=== PATIENT | male | born 2000 | race Caucasian/White ===

== ENCOUNTER 2019-04-16 09:43 | Emergency (ER) | payer OTHER ==
--- OUTSIDE RECORDS SUMMARY | 2019-04-16 09:50 | XMS REPORT | Continuity of Care Document ---
:2000 External Reference #:[id number] Author Name Jerald Jessica M.D. Address [address] [place] [address] Care Team Providers Name Role Jerald Beebe M.D. Primary Care Physician Unavailable Payers Date Identification Numbers Payment Provider Subscriber Policy Number: [id number] Braeden Ko PayID: [id number] [address] [place] [address] Problems Active Problems Provider Date Obesity Jerald Jessica M.D. Onset: 07/26/2015 Gilbert's syndrome Jerald Jessica M.D. Onset: 03/31/2019 Thrombocytopenic disorder Jerald Jessica M.D. Onset: 03/31/2019 Essential hypertension Jerald Jessica M.D. Onset: 12/16/2018 Family History Date Family Member(s) Observation Comments Father Seasonal Allergies Father Asthma Mother Seasonal Allergies Mother Asthma Onset: (age 35 Years) Maternal Grandfather Hypertension Social History Type Date Description Comments Sex Unknown Smoke-Free Home is smoke-free ETOH Use Occasionally consumes once a month or alcohol less, 4-5 drinks per event Tobacco Use Start: Unknown Patient has never smoked Recreational Drug Use Denies Drug Use Tobacco Use Start: Unknown No Exposure To Secondhand Smoke Smoking Status Reviewed: 03/31/19 No Exposure To Secondhand Smoke Currently Active Patient is currently sexually active Condom Use Always Age 1st [place] 17 Years Old # Partners in a Lifetime 3 Additional Info Sexual preference is men and women Allergies, Adverse Reactions, Alerts Description No Known Drug Allergies Medications Active Medications SIG Qnty Indications Ordering Provider Date Lisinopril 1 by mouth 30tabs I10 Jerald Jessica, 03/31/2019 10mg Tablets every day M.DNaeem History Medications No Active Medications Unknown 12/16/2018 - 03/31/2019 No Active Medications Unknown 11/22/2016 - 02/01/2018 Azithromycin 2 tablets by mouth 6tabs R05 Jerald 11/17/2016 - 250mg on the first day Pamela Jessica 11/22/2016 Tablets followed by one daily for the next 4 days No Active Medications Jerald 07/14/2014 - Pamela Jessica 11/17/2016 Ibuprofen last taken on 02/01 Unknown - 200mg Capsules @ 0900, vomited 12/15/2018 after. Medications Administered in Office Medication SIG Qnty Indications Ordering Provider Date Immunization Administration TASHA Fuentes 10/14/2017 Single Or Combination Injection Immunization Administration Nursing 09/07/2016 Single Or Combination Injection Immunization Administration Jerald Jessica M.D. 08/07/2016 Single Or Combination Injection Immunization Adminstration 2+ Nursing 06/21/2016 Single Or Combination Injection Immunization Administration Nursing 06/21/2016 Single Or Combination Injection Immunization Administration Jerald Jessica M.D. 07/26/2015 Single Or Combination Injection Immunization Administration Jerald Jessica M.D. 07/14/2014 Single Or Combination Injection Immunizations CPT Code Status Date Vaccine Lot # [id number] Given 10/14/2017 Flu Quadrivalent [id number] 39419 Given 09/07/2016 Meningococcal B Vaccine [id number] 24528 Given 08/07/2016 Meningococcal B Vaccine [id number] 63416 Given 06/21/2016 Menactra [id number] 47709 Given 06/21/2016 Flu Quadrivalent [id number] 76693 Given 07/26/2015 Flu Quadrivalent [id number] 40163 Given 07/14/2014 Flumist [id number] 48580 Given 07/08/2013 Gardasil 09523 Given 07/21/2012 Gardasil 33567 Given 05/20/2012 Gardasil 93877 Given 05/10/2010 Tdap 31913 Given 05/06/2009 Varicella (Chicken Pox) Vaccine 65612 Given 05/06/2009 Hepatitis A Pediatric 00226 Given 04/28/2008 Menactra 26569 Given 04/28/2008 Hepatitis A Pediatric 61757 Given 04/17/2004 MMR Vaccine, Live, For Subcutaneous Use 62735 Given 04/17/2004 DTaP Vaccine Younger Than 7 75464 Given 12/29/2003 Polio Injectable 72353 Given 11/20/2000 Prevnar 13 45764 Given 11/20/2000 DTaP Vaccine Younger Than 7 56782 Given 08/21/2000 Hepatitis B Vaccine Pediatric/Adolescent 41126 Given 08/21/2000 Varicella (Chicken Pox) Vaccine 77700 Given 08/21/2000 Hib Vaccine 96442 Given 05/01/2000 Polio Injectable 70503 Given 05/01/2000 MMR Vaccine, Live, For Subcutaneous Use 64380 Given 05/01/2000 Prevnar 13 22685 Given 01/31/2000 Hepatitis B Vaccine Pediatric/Adolescent 42910 Given 01/31/2000 Prevnar 13 37978 Given 1999 Hib Vaccine 54296 Given 1999 DTaP Vaccine Younger Than 7 20429 Given 1999 Hepatitis B Vaccine Pediatric/Adolescent 54231 Given 1999 Polio Injectable 49034 Given 1999 DTaP Vaccine Younger Than 7 16770 Given 1999 Hib Vaccine 55467 Given 1999 Polio Injectable 84745 Given 1999 DTaP Vaccine Younger Than 7 27898 Given 1999 Hib Vaccine Vital Signs Date Vital Result Comment 03/31/2019 4:40pm Body Temperature 98.7 F Heart Rate 92 /min Respiratory Rate 18 /min BP Systolic 142 mmHg BP Diastolic 97 mmHg Weight 275.38 lb Weight 124.910 kg Weight Percentile >97th 01/16/2019 4:11pm Body Temperature 97.9 F Heart Rate 104 /min Respiratory Rate 16 /min BP Systolic 150 mmHg auto large cuff BP Diastolic 95 mmHg auto large cuff BP Systolic Recheck 142 mmHg manual large cuff BP Diastolic Recheck 84 mmHg manual large cuff Weight 280.12 lb Weight 127.065 kg Weight Percentile >97th 12/16/2018 11:31am Body Temperature 97.7 F Heart Rate 92 /min Respiratory Rate 16 /min BP Systolic 140 mmHg BP Diastolic 94 mmHg BP Systolic Recheck 140 mmHg BP Diastolic Recheck 91 mmHg Weight 279.69 lb Weight 126.866 kg Height 72.75 inches 6'0.75" BMI (Body Mass Index) 37.2 kg/m2 Body Mass Index Percentile 99 % Height Percentile 87 % Weight Percentile >97th 02/01/2018 10:38am Body Temperature 98.2 F Heart Rate 84 /min Respiratory Rate 16 /min BP Systolic 138 mmHg BP Diastolic 80 mmHg Blood Pressure Percentile 89 % Weight 297.50 lb Weight 134.946 kg Height 72.75 inches 6'0.75" BMI (Body Mass Index) 39.5 kg/m2 Body Mass Index Percentile 99 % Height Percentile 88 % Weight Percentile >97th 10/14/2017 3:35pm Body Temperature 98.4 F Heart Rate 80 /min Respiratory Rate 16 /min BP Systolic 134 mmHg BP Diastolic 87 mmHg Blood Pressure Percentile 81 % Weight 299.56 lb Weight 135.882 kg Height 72.75 inches 6'0.75" BMI (Body Mass Index) 39.8 kg/m2 Body Mass Index Percentile 99 % Height Percentile 88 % Weight Percentile >97th 11/17/2016 12:03pm Body Temperature 98.8 F Heart Rate 84 /min Respiratory Rate 16 /min BP Systolic 120 mmHg BP Diastolic 72 mmHg Blood Pressure Percentile 0 % Weight 279.50 lb Weight 126.781 kg O2 % BldC Oximetry 98 % Weight Percentile >97th 08/07/2016 2:47pm Body Temperature 98.4 F Heart Rate 75 /min Respiratory Rate 12 /min BP Systolic 120 mmHg BP Diastolic 78 mmHg Blood Pressure Percentile 41 % Weight 275.00 lb Weight 124.740 kg Height 72.5 inches 6'0.50" BMI (Body Mass Index) 36.8 kg/m2 Body Mass Index Percentile 99 % Height Percentile 89 % Weight Percentile >97th 07/26/2015 2:32pm Body Temperature 98.5 F Heart Rate 92 /min Respiratory Rate 16 /min BP Systolic 132 mmHg BP Diastolic 84 mmHg Blood Pressure Percentile 87 % Weight 248.06 lb Weight 112.521 kg Height 71.75 inches 5'11.75" BMI (Body Mass Index) 33.9 kg/m2 Body Mass Index Percentile 99 % Height Percentile 87 % Weight Percentile >97th 07/14/2014 3:12pm Body Temperature 97.1 F Heart Rate 87 /min Respiratory Rate 14 /min BP Systolic 130 mmHg BP Diastolic 84 mmHg Blood Pressure Percentile 87 % Weight 236.00 lb Weight 107.050 kg Height 71.25 inches 5'11.25" BMI (Body Mass Index) 32.7 kg/m2 Body Mass Index Percentile 99 % Height Percentile 91 % Weight Percentile >97th 07/08/2013 12:00pm Heart Rate 98 /min Respiratory Rate 16 /min BP Systolic 137 mmHg BP Diastolic 81 mmHg Weight 200.81 lb Height 69.25 inches 05/20/2012 12:00pm Heart Rate 91 /min Respiratory Rate 16 /min BP Systolic 123 mmHg BP Diastolic 74 mmHg Weight 163.62 lb Height 65.75 inches 02/28/2012 12:00pm Heart Rate 76 /min Respiratory Rate 18 /min BP Systolic 131 mmHg BP Diastolic 72 mmHg Weight 157.38 lb 02/26/2012 12:00pm Heart Rate 92 /min Respiratory Rate 20 /min BP Systolic 126 mmHg BP Diastolic 68 mmHg Weight 157.50 lb 05/11/2011 12:00pm Heart Rate 101 /min Respiratory Rate 16 /min BP Systolic 123 mmHg BP Diastolic 80 mmHg Weight 140.62 lb Height 62.25 inches 07/19/2010 12:00pm Heart Rate 88 /min Respiratory Rate 16 /min BP Systolic 110 mmHg BP Diastolic 74 mmHg Weight 122.25 lb 05/10/2010 12:00pm Heart Rate 86 /min Respiratory Rate 12 /min BP Systolic 120 mmHg BP Diastolic 82 mmHg Weight 115.50 lb Height 59.25 inches 05/06/2009 12:00pm Heart Rate 84 /min Respiratory Rate 18 /min BP Systolic 90 mmHg BP Diastolic 66 mmHg Weight 102.00 lb Height 56.5 inches 04/28/2008 12:00pm Heart Rate 112 /min Respiratory Rate 24 /min BP Systolic 98 mmHg BP Diastolic 76 mmHg Weight 81.50 lb Height 54 inches 04/23/2007 12:00pm Heart Rate 80 /min Respiratory Rate 16 /min BP Systolic 88 mmHg BP Diastolic 68 mmHg Weight 64.00 lb Height 51.75 inches 04/19/2006 12:00pm Heart Rate 96 /min Respiratory Rate 20 /min BP Systolic 84 mmHg BP Diastolic 60 mmHg Weight 57.00 lb Height 48.5 inches Results Test Date Facility Test Result H/L Range Note Laboratory test 03/20/2019 [facility] Free T4 0.87 ng/dL N 0.61-1.[address] ([place] [address] Thyroxine) TSH (Thyroid Stim Horm) 3.30 mcIU/mL N 0.34-5.60 Comp Metabolic Panel 03/20/2019 [facility] Sodium 138 mmol/L N 135-[address] [place] [address] Potassium 4.2 mmol/L N 3.5-5.0 Chloride 106 mmol/L N 101-111 Co2 Carbon Dioxide 22 mmol/L N 22-32 Anion Gap 10 mmol/L N 2-11 Glucose 95 mg/dL N 70-100 Blood Urea Nitrogen 17 mg/dL N 6-24 Creatinine 0.82 mg/dL N 0.67-1.17 BUN/Creatinine Ratio 20.7 High 8-20 Calcium 9.7 mg/dL N 8.6-10.3 Total Protein 7.0 g/dL N 6.4-8.9 Albumin 4.7 g/dL N 3.2-5.2 Globulin 2.3 g/dL N 2-4 Albumin/Globulin Ratio 2.0 N 1-3 Total Bilirubin 1.70 mg/dL High 0.2-1.0 Alkaline Phosphatase 56 U/L N 34-104 Alt 41 U/L N 7-52 Ast 27 U/L N 13-39 Egfr Non- 121.0 >60 Egfr 146.5 >60 1 Laboratory test 03/20/2019 [facility] Renin 5.6 ng/mL/h [address] [place] [address] CBC Auto Diff 03/20/2019 [facility] White Blood 9.2 10^3/uL N 3.5-10.[address] [place] [address] Red Blood Count 5.89 10^6/uL High 4.18-5.48 Hemoglobin 16.3 g/dL N 14.0-18.0 Hematocrit 46 % N 42-52 Mean Corpuscular Volume 78 fL Low 80-94 Mean Corpuscular Hemoglobin 28 pg N 27-31 Mean Corpuscular HGB Conc 35 g/dL N 31-36 Red Cell Distribution Width 15 % N 10-15 Platelet Count 104 10^3/uL Low 150-450 Mean Platelet Volume 7.4 fL N 7.4-10.4 Abs Neutrophils 6.0 10^3/uL N 1.5-7.7 Abs Lymphocytes 2.3 10^3/uL N 1.0-4.8 Abs Monocytes 0.7 10^3/uL N 0-0.8 Abs Eosinophils 0.1 10^3/uL N 0-0.6 Abs Basophils 0.0 10^3/uL N 0-0.2 Abs Nucleated RBC 0.0 10^3/uL Granulocyte % 65.6 % Lymphocyte % 25.1 % Monocyte % 7.3 % Eosinophil % 1.5 % Basophil % 0.5 % Nucleated Red Blood Cells % 0.2 .CBC W/Auto 12/16/2018 [facility] White Blood 6.8 Differential [address] [place] [place] [address] CNT [phone] Absolute Lymphocytes 1.7 Absolute Monocytes 0.6 Absolute Neutrophils Auto CNT 4.5 Lymph% 25.2 [place]% Auto Count BLD 9.0 Neutrophil % 65.8 RBC Red Blood Count 5.77 Hemoglobin Blood 15.5 Hematocrit 47.2 MCV (Corpuscular Volume) 81.8 MCH (Corpuscular Hemoglobin) 26.9 MCHC (Corpuscular Hemog Conc) 32.8 RDW 14.1 Platelet Count Blood Auto CNT 108 MPV 8.0 .Cholesterol 12/16/2018 [facility] Cholesterol Total 137 Screening [address] Mass/[place] [address] [phone] HDL Cholesterol Mass/Vol 28 Triglycerides Ser/Plas Mass/VL 309 LDL Cholesterol Mass/Vol 47 Non-HDL Cholesterol QN Ser/PLS 109 LDL/HDL Ratio 1.7 Bordetella PCR 11/17/2016 [facility] Bordetella Source Nasopharyngeal s <SEE N [address] NOTE> [place] [address] Bordetella pertussis PCR Negative N 4 Bordetella parapertussis PCR Negative N 5 Order 11/17/2016 [facility] Oximetry - Pulse or 98% Ear .CBC W/Auto 07/14/2014 [facility] White Blood Count 8.0 Differential [address] Ser Auto CNT [place], [place] [id number] [phone] Absolute Lymphocytes 2.8 Absolute Monocytes 0.8 Absolute Neutrophils Auto CNT 4.4 Lymph% 34.6 [place]% Auto Count BLD 10.0 Neutrophil % 55.4 RBC Red Blood Count 6.05 Hemoglobin Blood 16.4 Hematocrit 47.0 MCV (Corpuscular Volume) 77.7 MCH (Corpuscular Hemoglobin) 27.1 MCHC (Corpuscular Hemog Conc) 34.9 RDW 16.3 Platelet Count Blood Auto CNT 146 MPV 8.4 1 Because ethnic data is not always readily available, this report includes an eGFR for both -Americans and non- Americans. The National Kidney Disease Education Program (NKDEP) does not endorse the use of the MDRD equation for patients that are not between the ages of 18 and 70, are , have extremes of body size, muscle mass, or nutritional status, or are non- or non-. According to the National Kidney Foundation, irrespective of diagnosis, the stage of the disease is based on the level of kidney function: Stage Description GFR(mL/min/1.73 m(2)) 1 Kidney damage with normal or decreased GFR 90 2 Kidney damage with mild decrease in GFR 60-89 3 Moderate decrease in GFR 30-59 4 Severe decrease in GFR 15-29 5 Kidney failure <15 (or dialysis) 2 REFERENCE VALUE (Peripheral vein specimen) Na-deplete, upright: Mean: 10.8 Range: 2.9-24 Na-replete, upright: Mean: 1.9 Range: < or=0.6-4.3 ADDITIONAL INFORMATION Testing performed by Liquid Chromatography-Tandem Mass Spectrometry (LC-MS/MS). This test was developed and its performance characteristics determined by [facility] in a manner consistent with CLIA requirements. This test has not been cleared or approved by the U.S. Food and Drug Administration. Test Performed by: [facility] [address] [place] [address] 3 Nasopharyngeal swab 4 REFERENCE VALUE Not Applicable 5 REFERENCE VALUE Not Applicable ADDITIONAL INFORMATION This test was developed and its performance characteristics determined by [facility] in a manner consistent with CLIA requirements. This test has not been cleared or approved by the U.S. Food and Drug Administration. Test Performed by: [address] [address] Material Damage Adjuster: Rob Bradshaw II, M.D., Ph.D. Procedures Date Code Description Status 12/16/2018 94180 Vision Screening Completed 12/16/2018 62717 Admin Patient Focused Health Risk Assessment Instrument Completed 12/16/2018 58212 Brief Emotional/Behav Assessment W/ Scoring Doc Per Completed Standard Inst 12/16/2018 36252 Hearing Screen, Pure Tone, Air Completed 12/16/2018 34992 Collection Of Capillary Blood Specimen Completed 10/14/2017 12223 Hearing Screen, Pure Tone, Air Completed 10/14/2017 23853 Brief Emotional/Behav Assessment W/ Scoring Doc Per Completed Standard Inst 10/14/2017 72211 Admin Patient Focused Health Risk Assessment Instrument Completed 10/14/2017 34482 Vision Screening Completed 11/17/2016 07411 Pulse Oximetry Completed 08/07/2016 04630 Vision Screening Completed 08/07/2016 15827 Hearing Screen, Pure Tone, Air Completed 07/26/2015 42888 Vision Screening Completed 07/26/2015 37622 Hearing Screen, Pure Tone, Air Completed 07/14/2014 69536 Vision Screening Completed 07/14/2014 13213 Hearing Screen, Pure Tone, Air Completed 07/14/2014 53653 Collection Of Capillary Blood Specimen Completed Encounters Type Date Location Provider Dx Diagnosis Office Visit 03/31/2019 Tanisha Charissa Saldaña Essential ( primary) 4:30p Pamela hypertension D69.6 Thrombocytopenia, unspecified E80.4 Gilbert syndrome Office Visit 01/16/2019 4:15p Tanisha Marques I10 Essential (primary) Pamela Jessica hypertension Office Visit 12/16/2018 11:30a [place] Marques Z00.01 Encounter for Pamela Jessica general adult medical exam w abnormal findings E66.9 Obesity, unspecified I10 Essential (primary) hypertension Z71.89 Other specified counseling Z13.89 Encounter for screening for other disorder D69.6 Thrombocytopenia, unspecified Office Visit 02/01/2018 10:30a [facility] Norma Campos, A08.39 Other viral M.D. enteritis Office Visit 10/14/2017 3:00p [facility] TASHA Fuentes Z00.00 Encntr for general adult medical exam w/o abnormal findings E66.9 Obesity, unspecified Z13.89 Encounter for screening for other disorder Z71.89 Other specified counseling Office Visit 11/17/2016 12:00p [facility] Jerald Jessica R05 Cough M.D. Office Visit 08/07/2016 3:00p [facility] Jerald Jessica, Z00.129 Encntr for M.D. routine child health exam w/o abnormal findings E66.9 Obesity, unspecified Office Visit 07/26/2015 2:45p [facility] Jerald Jessica, Z00.121 Encounter for M.D. routine child health exam w abnormal findings E66.9 Obesity, unspecified R03.0 Elevated blood-pressure reading, w/o diagnosis of htn Office Visit 07/14/2014 3:00p [facility] Jerald Jessica, V20.2 Routine Or M.D. Child Health Check 278.00 Obesity Unspec V65.42 Counseling On Substance Use & Abuse Plan of Treatment Future Appointment(s):05/01/2019 1:30 pm - Jerald Jessica M.D. at [facility]12/22/2019 3:45 pm - Jerald Jessica M.D. at [facility]03/31/2019 - Jerald Jessica M.D.I10 Essential (primary) hypertensionNew Medication: Lisinopril 10 mg - 1 by mouth every dayFollow up:1 etzgzC00.6 Thrombocytopenia, unspecifiedReferral:Bernard Gallo MD, Hematology & DvkjokogE45.4 Gilbert syndrome
[2019-04-16 10:07] VITALS: BP 135/81
--- NOTE | 2019-04-16 10:56 | UC ---
Laceration HPI - HPI Summary HPI Summary: RHD male - cutting bagel 2 hours ago and cut left index. cutting bagel cleaned with water no paresthesia not immunocompromised unknown last tdap meds reviewed - History Of Current Complaint Chief Complaint: UCLaceration Stated Complaint: FINGER LACERATION Time Seen by Provider: 04/16/19 10:52 Hx Obtained From: Patient Laceration Location: Hand Mechanism Of Injury: Sharp Trauma Onset/Duration: Sudden Onset Severity: Mild Pain Intensity: 1 Pain Scale Used: 0-10 Numeric - Allergies/Home Medications Allergies/Adverse Reactions: Allergies Allergy/AdvReac Type Severity Reaction Status Date / Time No Known Allergies Allergy Verified 04/16/19 10:07 Home Medications: Home Medications NK [No Home Medications Reported] 04/16/19 [History Confirmed 04/16/19] PMH/Surg Hx/FS Hx/Imm Hx Previously Healthy: Yes - Surgical History Surgical History: None - Family History Known Family History: Positive: Non-Contributory - Social History Occupation: Employed Full-time Lives: With Family Alcohol Use: Rare Substance Use Type: Marijuana Smoking Status (MU): Never Smoked Tobacco Review of Systems All Other Systems Reviewed And Are Negative: Yes Constitutional: Positive: Negative Skin: Positive: Other - laceration left index Physical Exam - Summary Physical Exam Summary: Vital Signs Reviewed: Yes A+Ox3, no distress Eyes: Conjunctiva Clear ENT: Hearing grossly normal neck: supple Respiratory: Positive: No respiratory distress, No accessory muscle use Cardiovascular: skin color reflect adequate perfusion 2+radial ulna CBT < 2 sec Musculoskeletal Exam: + flex/ext MCP, DIP, PIP against resistance Neurological: Positive: Alert, ambulatory without difficulty Psychological: Positive: Normal Response To proivder Skin: Positive: no rash, no ecchymosis 1.5 cm laceratioin between IP joints, dosrum, left index, no active bleeding. linear Triage Information Reviewed: Yes Vital Signs: Initial Vital Signs Temp 98 F 04/16/19 10:04 Pulse 88 04/16/19 10:04 Resp 17 04/16/19 10:04 BP 135/81 04/16/19 10:04 Pulse Ox 100 04/16/19 10:04 Procedures - Procedure Summary Procedure Summary: verbal permission to treat time out completed with RN at bedside pt prepped in usual, sterile fashion copious irrigation with 250ml sterile saline under pressure pt tolerated well reviewed with pt wound care s/s infection return precautions Laceration Repair - Laceration Repair 1 Description: Linear Laceration Size After Repair: Length (cm) - 1.5 Modified For Repair: No Type Injection: Local Anesthesia Used: 1.0% Lido Cleansing Completed Via Routine Prep: Yes Irrigation With Pressure Irrigation Device: Yes Closure Material: Sutures - 5-0 Closure Method: Single Layer - 5-0 Suture Of: Skin Laceration Course/Dx - Course/Dx Course Of Treatment: Pt with 1.5cm laceration to left index, non dominant distal CSM intact last tdap 2011 per PCP closed wound care tdap updated motrin/apap s/s infection - Diagnosis Provider Diagnosis: Finger laceration Discharge - Sign-Out/Discharge Documenting (check all that apply): Patient Departure All imaging exams completed and their final reports reviewed: No Studies - Discharge Plan Condition: Stable Disposition: HOME Patient Education Materials: Diphtheria/Acellular Pertussis/Tetanus Booster Vaccine (By injection), Finger Laceration (ED) Referrals: Jerald Jessica MD [Primary Care Provider] - Additional Instructions: - your stitches should come out in 8-10 days - you can return here, go to your Doctor or any urgent care center - okay to alternate ibuprofin (advil, motrin) and tylenol every 3hours as needed for pain -Anticipate increased discomfort over the next several hours as the numbing medication wears off -Keep your wound clean and dry - no soaking for 24 hours. Then, okay for wound to get wet - pat dry, don't rub -apply a thin layer of antibiotic ointment (neosporin, polysporin) 2-3 times a day - when you have a cut, you will have a scar. To minimize scar formation - keep your wound clean - monitor for signs of infection - reddness, red streaking, odor, green drainage -Once sutures out - keep your wound out of direct sun (wear a hat or sun screen ) - it may take up to 8 months for your scar to reach its final state - Contact your doctor or return here with questions or concern - Billing Disposition and Condition Condition: STABLE Disposition: Home
[2019-04-16] MEDS ORDERED: Lidocaine 1% MPF ** 5 ML VIAL INJ ONE (11:02)
[2019-04-16] MEDS ORDERED: Tetan/Diph/Pertus SYR(Tdap)* 0.5 ML SYR(BOOSTRIX) use SYR IM ONE (11:06)
== END 2019-04-16 11:35 | disposition home or self-care (01) ==
LOC: UCEAST 09:43
DX: S61.211A Laceration without foreign body of left index finger without damage to nail, initial encounter (principal); W26.0XXA Contact with knife, initial encounter; Y93.G1 Activity, food preparation and clean up; Y92.9 Unspecified place or not applicable; Y99.8 Other external cause status
CPT/HCPCS: 12001; 90471; 90715; 99211; G0463